=== PATIENT | male | born 1985 | race Native Hawaiian/Other Pacific Islander ===

== ENCOUNTER 2019-07-14 13:56 | Inpatient (IN) | payer OTHER ==
[~2019-07-14] VITALS: Ht 180.3 cm; Wt 133.4 kg
[2019-07-14 13:56] VITALS: BP 168/95; TEMP 103.1
[2019-07-14 15:21] LABS: PLATELET COUNT 125 K/uL (142-355)
[2019-07-14 15:26] LABS: POTASSIUM 4.5 mmol/L (3.6-5.2); SODIUM 129 mmol/L (136-145)
[2019-07-14 15:33] LABS: PARTIAL THROMBOPLASTIN TIME 24.5 SECONDS (24.5-33.6)
[2019-07-14 17:00] VITALS: TEMP 99.1
--- NOTE | 2019-07-14 19:25 | NUR ---
RECEIVED REPORT FROM JENNA JUNIOR RN FROM ER. PT ADMITTED WITH DIAGNOSIS SVT/HEPATIC STEATOSIS/ABDOMINAL PAIN/HYPONATREMIA/FUO/ACUTE SEPSIS/ AND RENAL FAILURE. DR. VICKY CHOU PRESENT IN ER TO PERFORM CENTRAL LINE PLACEMENT.
[2019-07-14 22:38] VITALS: BP 90/60; TEMP 97.4; Ht 180.3 cm; Wt 133.4 kg
[2019-07-15] VITALS (19 sets, daily range): BP systolic 87–120; BP diastolic 38–77; TEMP 97.6–99.3
--- NOTE | 2019-07-15 01:34 | NUR ---
PT HAS BEEN UNABLE TO URINATE SINCE ADMISSION AND SINCE EARLY Monday07/14/19 MORNING. PT ATTEMPTED X2 TO URINATE IN URINAL. NO RESULTS. INSTRUCTED PT TO DRING PO FLUIDS..WATER. NS INFUSING AT 150 ML/HR VIA PUMP. PT COMPLAINS OF ABDOMINAL PAIN. CT SHOWS ENLARGED SPLEEN AND NO OTHER ABNORMILITIES. BP IS 98/64. OFFICER AT BEDSIDE.
--- NOTE | 2019-07-15 04:32 | NUR ---
PT IS RESTING WITH EYES CLOSED. RESP EVEN AND NONLABORED. USING 02 AT 2L NC. CM WITH SINUS TACH. BP 94/54. RESP ARE 16.
--- NOTE | 2019-07-15 05:42 | NUR ---
PT CONTINUES TO REST QUIETLY WITH EYES CLOSED. PT'S SINUS TACHYCARDIA AT 116 BPM. COMPLAINS OF HAVING A HEADACHE. MOTRIN 800 MG PO GIVEN. BP IMPROVED. 112/59 BP AT PRESENT TIME. OFFICER AT BEDSIDE.
--- NOTE | 2019-07-15 06:58 | NUR ---
LAB HERE, LABS OBTAINED VIA R NECK TLC PER THIS NURSE. DEPUTY AT BS. PT IN STRAPS ALL EXTREMITIES. WRISTS SECURED LOOSELY TO BED.
[2019-07-15 07:14] LABS: PLATELET COUNT 111 K/uL (142-355)
--- NOTE | 2019-07-15 07:15 | NUR ---
DR ATTILA CHOU IN TO SEE PT.
[2019-07-15 07:35] LABS: POTASSIUM 3.9 mmol/L (3.6-5.2); SODIUM 131 mmol/L (136-145)
--- NOTE | 2019-07-15 07:55 | NUR ---
PT IN LF,A& X3. NS BOLUS STARTED PER DR'S ORDER. PT VOIDED 300 ML SHAE URINE. PT WITH DEPUTY AT BS. PT/INMATE STRAPPED TO BED X 4 PER DEPUTY. ALL EXTREMITIES PINK & WARM. NO EDEMA. STRAPS LOOSE + PULSES ALL EXTREMITIES. IV R NECK TLC INTACT.
--- NOTE | 2019-07-15 08:40 | NUR ---
LABS CALLED TO DR CHOU.
--- NOTE | 2019-07-15 08:55 | NUR ---
DR CHOU IN TO SEE PT & TALK WITH DEPUTY ABOUT POSSIBLE TRANSFER TO DR KAREEM [facility] [place].
--- NOTE | 2019-07-15 09:08 | NUR ---
HAS TALKED WITH MEDICAL DEPARTMENT & REQUEST THAT DR CHOU CALL & ASK FOR NURSE NOMAN. DR CHOU HAS BEEN NOTIFIED.
--- NOTE | 2019-07-15 09:09 | NUR ---
NURSE MICHAELS HAS CALLED FROM [facility]. SHE WILL CALL [employer]PER[employer] TO DISCUSS TRANSFER. PT WILL HAVE TO GO TO APPROVED FACILITY PER THE STATE. DR ATTILA CHOU NOTIFIED.
[2019-07-15] MEDS ORDERED: PRINIVIL10 MG PO (09:53)
--- NOTE | 2019-07-15 10:45 | NUR ---
PT UP TO BR TO HAVE A BM. SHACKLES INTACT.
--- NOTE | 2019-07-15 10:50 | NUR ---
PT BACK TO BED STABLE, RE SHACKLED TO BED ROSALBA WRIST & ANKLE SHACKLES INTACT PER DEPUTY. PULSES INTACT ROSALBA WRISTS & PEDAL. EXTREMITIES WARM. PT WITH GOOD MOVEMENT ALL EXTREMITIES.
[2019-07-15] MEDS ORDERED: DIVA500T2 PO ×2 (11:06→11:07)
--- NOTE | 2019-07-15 11:50 | NUR ---
PT TO NUCLEAR MED STABLE VIA WC ESCORTED PER DEPUTY & NUCLEAR MED TECH.
[2019-07-15] MEDS ORDERED: OLAN10INJ PO (12:25)
[2019-07-15] MEDS ORDERED: VENLAFAXINE150 M1 PO (12:26)
[2019-07-15] MEDS ORDERED: GABA300C2 PO (12:27)
[2019-07-15] MEDS ORDERED: HYDR25TA60 PO (12:28)
[2019-07-15] MEDS ORDERED: IBU800 MG PO (12:29)
--- NOTE | 2019-07-15 12:50 | NUR ---
PT BACK FROM [facility] STABLE VIA WC. TO BR & THEN TO BED, SITTING UP ON SIDE OF BED TO EAT. DEPUTY AT BS.
--- NOTE | 2019-07-15 14:19 | NUR ---
CALL TO [facility].STILL WAITING FOR BED.REPORTED TO DR CHOU.
--- NOTE | 2019-07-15 14:37 | NUR ---
DR ATTILA CHOU TALKED WITH DR DIAZ IN [place]. HE WOULD BE ABLE TO SEE PT TOMORROW. DR CHOU TO FAX INFO TO DR VAZQUEZ & IF PT NOT TRANSFEREED TODAY, WILL MANAGE PT HERE. DR CHOU INFORMED DEPUTY AT BS.
--- NOTE | 2019-07-15 15:17 | NUR ---
DR CHOU CANCELED TRANSFER WILL MANAGE PT HERE. CHAN AT [facility] NOTIFIED.
--- NOTE | 2019-07-15 16:42 | NUR ---
DISCUSSED MEDICATION VALPROIC ACID WITH PT. PT STATES 'I TAKE IT FOR MY BIPOLAR'. PT STATES 'I HAVE HAD SEIZURES BEFORE BUT NOT IN A LONG TIME.' REPORTED TO DR ATTILA CHOU.
--- NOTE | 2019-07-15 18:21 | NUR ---
LAB CALLED PT WITH POSITIVE BLOOD CULTURES. REPORTED TO DR CHOU.
[2019-07-16] VITALS (21 sets, daily range): BP systolic 102–134; BP diastolic 61–85; TEMP 97.2–99.6
--- NOTE | 2019-07-16 05:00 | NUR ---
PT IS RESTING AND TALKS WHILE SLEEPING. PT WITH INCREASE OUTPUT THIS SHIFT. ST ON CM. PT WITH SECURITY CUFFS TO ANKLES BILATERAL. WRISTS WITH BILATERAL SECURITY CUFFS. PT IS INCARCERATED AT ITF. OFFICER AT BEDSIDE. NO COMPLAINTS VOICED.
[2019-07-16 05:59] LABS: PLATELET COUNT 115 K/uL (142-355)
[2019-07-16 06:33] LABS: POTASSIUM 3.8 mmol/L (3.6-5.2); SODIUM 139 mmol/L (136-145)
--- NOTE | 2019-07-16 08:00 | NUR ---
PT UP TO AMBULATE TO BR. USES URINAL. PT WITH BOTH WRISTS & ANKLES STRAPPED & CONNECTED TO CUFFS.ALL EXTREMITIES WARM + PULSES.
--- NOTE | 2019-07-16 10:30 | NUR ---
PT UP TO BATHROOM TO VOID,USING URINAL. URINE MEDIUM YELLOW. GAIT STEADY.
--- NOTE | 2019-07-16 11:20 | NUR ---
DR DOMINIK NAVA IN TO SEE PT. NO NEW ORDERS.
--- NOTE | 2019-07-16 12:50 | NUR ---
PT'S AUNT CALLED TO CK ON PT. INFORMED HER I COULD NOT GIVE OUT INFORMATION THAT SHE WILL HAVE TO CALL THE FACILITY [facility] & SPEAK WITH THE COUNSELOR. THIS PER THE OFFICER AT BS.
--- NOTE | 2019-07-16 13:15 | NUR ---
PT C/O PAIN RUQ & EPIGASTRIC AREA TENDER TO PALPATION. MESSAGE LEFT FOR DR Howie ALEX TO CALL ME.
--- NOTE | 2019-07-16 13:25 | NUR ---
DR ALEX CALLED BACK. REPORTED ABOVE C/O.
--- NOTE | 2019-07-16 14:10 | NUR ---
RADIOLOGY IN TO DO ROSALBA VENOUS DOPPLER LOWER EXTREMITIES.
--- NOTE | 2019-07-16 16:00 | NUR ---
DR ALEX IN TO SEE PT. REPORTED O2 SATS DECREASEING WHEN PT SLEEPING. REVIEWED DOPPLER REPORT.
--- NOTE | 2019-07-16 17:26 | NUR ---
PT UP & AMBULATING TO BATHROOM.NO C/O PAIN. GAIT STEADY.
[2019-07-16] MEDS ORDERED: OLANZAPINE10 M2 PO (19:37)
[2019-07-17] VITALS (7 sets, daily range): BP systolic 114–138; BP diastolic 64–89; TEMP 98.1–99.1
--- NOTE | 2019-07-17 01:28 | NUR ---
PT RESTING WITH EYES CLOSED. RESP EVEN AND UNLABORED. RESPIRATIONS ARE EVEN AND NONLABORED. O2 SATS ARE 94 TO 95 PERCENT.
--- NOTE | 2019-07-17 06:45 | NUR ---
PT HAS RESTED THROUGHOUT THE NIGHT. PT CONTINUES TO VOID AND HAS OUTPUT. PT HAS DRINK PO FLUIDS AND ATE CEREAL. NO N/V OR ANY DIFFICULTY NOTED. CM WITH SINUS RHYTHM. NS INFUSING AT 150ML/HR VIA PUMP. OFFICER NATHANAEL AT BEDSIDE. PT HAS SECURITY CUFFS TO WRISTS BILATERAL AND ANKLES BILATERAL. CHAIN TO ABDOMEN. NO SKIN BREAKDOWN NOTED. PT STATED HE HAS NO ABDOMINAL PAIN AT PRESENT.
--- NOTE | 2019-07-17 10:13 | NUR ---
RECIEVED AM MEDS UP IN BED ATE ALL BREAKFAST EARLIER ROSALEE WELL. SLEEPING THIS AM. UP TO BATHROOM X 1 THIS AM VOIDED DARK SHAE CLEAR URINE 500 ML. REMOVED IV RIGHT WRIST CATH INTACT NO REDNESS NO SWELLING AT SITE. HANDCUFF WAS RUBBING ON IV SITE MAKING IT SORE. SKIN INTACT. NO REDNESS.
--- NOTE | 2019-07-17 12:09 | NUR ---
CONTINUES RESTING QUIETLY HOB UP. CONTINUES IN NSR HR 90. LAB HERE FLUSHED CENTRAL LINES OBTAIN SPEC FOR BMP TO LAB. NO ACUTE DISTRESS NOTED.
[2019-07-17 12:12] LABS: POTASSIUM 3.7 mmol/L (3.6-5.2)
[2019-07-17] MEDS ORDERED: PANTOPRAZOLE 40MG TA PO (13:59)
--- NOTE | 2019-07-17 14:20 | NUR ---
DR ALEX VISITED CHECKED PATIENT REPORT FINDINGS AND CURRENT LABS IMPROVING WILL BE DISCHARING PATIENT BACK TO [facility]. OFFICE BROWN AT BEDSIDE AWARE OF DISCHARGE.
--- NOTE | 2019-07-17 14:40 | NUR ---
RECIEVED ORDER FOR DISCHARGE, EXPLAINED PROCEDURE TO PATIENT WILL BE REMOVING CENTRAL LINE. REMOVED SUCTURES, PT INSTRUCTED TO TAKE A DEEP BREATH LINE PULLED HELD A LITTLE PRESSURE 5 MIN WITH STERILE DRESSING NO BLEEDING NO SIGNS OF INFECTION CENTRAL LINE CATH AND TIP INTACT. APPLIED DRESSING NO BLEEDING NOTED.
--- NOTE | 2019-07-17 16:15 | NUR ---
CHECKED DRESSING TO RIGHT SIDE OF NECK DRY CLEAN INTACT NO BLEEDING AT SITE. REVIEWED DISCHARGED ODERS WITH PATIENT AND OFFICER NATHANAEL GAVE RX FOR NEW MEDS. PATIENT DRESSED READY TO GO RIDE HERE DISCHARGED FROM ICU VIA W/C TO VAN TO RETURN TO [facility]. NO COMPLAINTS VOICED. DISCHARGED FROM HOSPITAL ACCOMPANIED BY OFFICERS.
--- NOTE | 2019-07-19 11:17 | NUR ---
WHILE IN ICU RECEIVED THROUGH COPY MACHINE RESULTS FOR ID & S FOR CULTURES COLLECTED ON MR. JOSE ANGEL GRAHAM. WILL NOTIFY .
== END 2019-07-17 20:27 | DRG 872 ==
LOC: ED 14:02 → ICU 16:15
PROVIDERS: Hospitalist; Internal Medicine; ADMIT Family Medicine
PROC: 05HM33Z Insertion of Infusion Device into Right Internal Jugular Vein, Percutaneous Approach (ICD-10-PCS; principal; 2019-07-14)
DX: A41.59 Other Gram-negative sepsis (principal); N17.8 Other acute kidney failure; I47.1 Supraventricular tachycardia; G40.802 Other epilepsy, not intractable, without status epilepticus; F31.89 Other bipolar disorder; N39.0 Urinary tract infection, site not specified; E87.1 Hypo-osmolality and hyponatremia; E87.2 Acidosis; K76.0 Fatty (change of) liver, not elsewhere classified; R16.1 Splenomegaly, not elsewhere classified; R10.13 Epigastric pain; I95.89 Other hypotension; I10 Essential (primary) hypertension; E87.8 Other disorders of electrolyte and fluid balance, not elsewhere classified; I87.8 Other specified disorders of veins
CPT/HCPCS: 36415; 36558; 80048; 80053; 80069; 80074; 80164; 80307; 81000; 82150; 82550; 82553; 83605; 83690; 83880; 84443; 84484; 85007; 85027; 85379; 85610; 85730; 87040; 87070; 87077; 87088; 87185; 87186; 87205; 87502; 87651; 87899; 93005; 96360; 96375; 99285; A9540; A9567; C1768; J0153; J0696; J1650; J2001; J3370; J3490